=== PATIENT | male | born 1960 ===

== ENCOUNTER 2024-02-15 15:48 | Outpatient (REF) | payer OTHER, SELFPAY ==
[2024-02-15 16:23] LABS: Hemoglobin A1C 5.5 % (<5.7)
[2024-02-15 17:43] LABS: Calculated LDL 140 mg/dL (<100); Cholesterol 233 mg/dL (<200); HDL Cholesterol 54 mg/dL (40-60); Triglyceride 197 mg/dL (<150); Vitamin D 25 Total 24.6 ng/mL (30-100)
== END 2024-02-15 15:49 | disposition home or self-care (01) ==
LOC: NCHCN 15:48
PROVIDERS: Visit Provider Student in an Organized Health Care Education/Training Program
DX: E78.5 Hyperlipidemia, unspecified (principal); E55.9 Vitamin D deficiency, unspecified; Z13.1 Encounter for screening for diabetes mellitus
CPT/HCPCS: 80061; 82306; 83036